=== PATIENT | male | born 1985 | race African-American/Black ===

== ENCOUNTER 2018-04-22 15:38 | Inpatient (IN) | payer OTHER ==
[2018-04-22] MEDS ORDERED: SODIUM CHLORIDE 1,000 ML IV STA (15:48)
[2018-04-22] MEDS ORDERED: NALOXONE HCL 0.4 MG/ML VIAL ONE (15:48)
[2018-04-22 16:09] LABS: BASO % 0.6 % (0-2.0); EOS % 1.6 % (0-4.5); HEMATOCRIT 44.4 % (35.4-49); HEMOGLOBIN 14.6 GM/dL (11.7-16.9); LYMPH % 36.1 % (8-40); MCH 30.1 pg (25.7-33.7); MCHC 32.9 g/dl (32.0-35.9); MEAN CELL VOLUME 91.4 fl (80-96); MEAN PLT VOLUME 9.5 fl (7.5-11.1); MONO % 3.3 % (3.8-10.2); NEUT % 58.4 % (42.8-82.8); PLATELET COUNT 202 K/MM3 (134-434); RBC 4.86 M/mm3 (4.00-5.60); RDW 14.4 % (11.9-15.9); WHITE BLOOD COUNT 10.8 K/mm3 (4.0-10.0)
[2018-04-22 16:24] LABS: INR 0.89 (0.83-1.09); PROTHROMBIN TIME (PATIENT) 10.5 SEC (9.7-13.0)
[2018-04-22 16:26] LABS: URINE APPEARANCE SLCLOUDY; URINE BILIRUBIN NEGATIVE (<2.0 mg/dL); URINE COLOR LTYELLOW; URINE GLUCOSE (UA) 3+ (NEGATIVE); URINE KETONE NEGATIVE (NEGATIVE); URINE LEUK ESTERASE NEGATIVE (NEGATIVE); URINE NITRITE NEGATIVE (NEGATIVE); URINE PROTEIN 2+ (NEGATIVE); URINE UROBILINOGEN NEGATIVE mg/dL (0.2-1.0)
--- NOTE | 2018-04-22 16:26 | PDOC ---
History of Present Illness - General Chief Complaint: Overdose Stated Complaint: Overdose Time Seen by Provider: 04/22/18 15:57 History Source: EMS Exam Limitations: Clinical Condition, Unresponsive - History of Present Illness Initial Comments: 04/22/18 16:15 The patient is a 33M with unknown PMH who presents to the ER via EMS. EMS provides the history as the patient is unresponsive. EMS states that they got a call for an unresponsive male. EMS states they found the gentleman slumped over with vomit in front of him. No other information was able to be obtained. They noted that there were no needles or paraphernalia around him. Past History - Past Medical History Allergies/Adverse Reactions: Allergies Allergy/AdvReac Type Severity Reaction Status Date / Time No Allergy Information Allergy Verified 04/22/18 15:47 Available Home Medications: Ambulatory Orders Benztropine Mesylate [Cogentin -] 1 mg PO DAILY #14 tablet 12/10/17 Divalproex [Depakote -] 500 mg PO HS #14 tablet.ec 12/10/17 Fluphenazine Decanoate [Prolixin Decanoate (Long-Acting Injection) -] 25 mg IJ ONCE #2 ml 12/10/17 COPD: No - Suicide/Smoking/Psychosocial Hx Smoking History: Never smoked Have you smoked in the past 12 months: No Information on smoking cessation initiated: No Hx Alcohol Use: No Drug/Substance Use Hx: No Review of Systems - Review of Systems Able to Perform ROS?: No (unresponsive) *Physical Exam - Vital Signs Last Vital Signs Temp Pulse Resp BP Pulse Ox 118 H 10 142/85 100 04/22/18 15:43 04/22/18 15:43 04/22/18 15:43 04/22/18 15:43 - Physical Exam Comments: 04/22/18 18:30 GENERAL: Well developed, well nourished. Unresponsive. No acute distress. HEENT: Normocephalic, atraumatic. Hearing grossly normal. Moist mucous membranes. PERRLA, EOMI. No conjunctival pallor. Sclera are non-icteric. Small bite jenni on anterior tongue. NECK: Supple. Full ROM. CARDIOVASCULAR: Regular rate and rhythm. No murmurs, rubs, or gallops. Distal pulses are 2+ and symmetric. PULMONARY: Spontaneous respirations without agonal breathing. Mild rales in all lung lechuga. ABDOMINAL: Soft. Non-tender. Non-distended. No rebound or guarding. MUSCULOSKELETAL: Not withdrawing from painful stimulus. R hand amputation. EXTREMITIES: No cyanosis. No clubbing. No edema. No calf tenderness or swelling. SKIN: Warm and dry. Normal capillary refill. No rashes. No jaundice. NEUROLOGICAL: Unresponsive. Not withdrawing from painful stimuli. No verbal responsiveness. Moderate Sedation - Procedure Monitoring Vital Signs: Procedure Monitoring Vital Signs Temperature Pulse Rate 118 H 04/22/18 15:43 Respiratory Rate 10 04/22/18 15:43 Blood Pressure 142/85 04/22/18 15:43 O2 Sat by Pulse Oximetry (%) 100 04/22/18 15:43 Heart Score/ECG Review #1 General ECG Interpretation: No acute ischemic changes Compared to previous ECG there are: Previous ECG unavail 04/22/18 18:36 Sinus tach vent rate 125 MI 122 QRS 104 QTc 498 No STD or ALYX Peaked T waves in V2 No priors ED Treatment Course - LABORATORY CBC & Chemistry Diagram: 04/22/18 15:43 04/22/18 15:43 - ADDITIONAL ORDERS Additional order review: 04/22/18 15:43 RBC 4.86 MCV 91.4 MCHC 32.9 RDW 14.4 MPV 9.5 Neutrophils % 58.4 Lymphocytes % 36.1 Monocytes % 3.3 L Eosinophils % 1.6 Basophils % 0.6 Medical Decision Making - Medical Decision Making 04/22/18 18:36 The patient is a 33M with unknown PMH who presents to the ER via EMS for unresponsiveness. Pt was given 1.4 of narcan and was found to have vomit in front of him. Although he was intermittently spontaneously breathing, he was not protecting his airway from secretions. Pt was intubated for airway protection. Bilateral breath sounds were appreciated with color change and condensation in the tube. CT head was negative. CXR negative on preliminary read but very limited by view. Pt currently being sedated with fentanyl and versed. Pt has copious secretions which are being suctioned and require frequent suction. CBC, CMP, utox negative. Au placed. NG tube was placed. IVF being given. Lactate of 3.0. XR noted a tube that required deeper placement. Upon attempt at replacement, tube was noted to be dislodged. Pt required additional rocuronium and was reintubated. Pending repeat CXR. Pt signed out to LAVER[facility] Ramirez for admission. ICU team, Dr. Barnett, aware of pt. *DC/Admit/Observation/Transfer Diagnosis at time of Disposition: Unresponsive - Discharge Dispostion Condition at time of disposition: Critical Decision to Admit order: Yes - Referrals - Patient Instructions - Post Discharge Activity
[2018-04-22] MEDS ORDERED: FENTANYL INJECTION 500 MCG in DEXTROSE 5%-WATER - 90 ML IVPB SCH (16:30)
[2018-04-22 16:35] LABS: ALBUMIN 4.1 g/dl (3.4-5.0); ALK PHOS 174 U/L (45-117); ANION GAP 12 MMOL/L (8-16); BILIRUBIN,TOTAL 0.3 mg/dL (0.2-1); BLOOD UREA NITROGEN 11 mg/dL (7-18); CALCIUM 7.9 mg/dL (8.5-10.1); CHLORIDE 102 mmol/L (98-107); CO2 25 mmol/L (21-32); CREATININE 1.8 mg/dL (0.55-1.3); POTASSIUM 4.3 mmol/L (3.5-5.1); SGOT/AST 324 U/L (15-37); SGPT/ALT 394 U/L (13-61); SODIUM 139 mmol/L (136-145); TOT PROT 7.6 g/dl (6.4-8.2)
[2018-04-22 16:35] LABS: URINE HYALINE CAST 4 /lpf; URINE MUCUS RARE
[2018-04-22 16:45] LABS: PLATELET ESTIMATE ADEQUATE
[2018-04-22 16:59] LABS: COCAINE, UR NEGATIVE ng/ml (CUTOFF=300); METHADONE, UR NEGATIVE ng/ml (CUTOFF=300); PHENCYCLIDINE,URINE NEGATIVE ng/ml (CUTOFF=25); URINE AMPHETAMINES NEGATIVE ng/ml (CUTOFF=500); URINE BARBITURATES NEGATIVE ng/ml (CUTOFF=200); URINE BENZODIAZEPINES NEGATIVE ng/ml (CUTOFF=200)
[2018-04-22 17:00] LABS: OPIATES, URI NEGATIVE ng/ml (CUTOFF=300)
[2018-04-22 17:08] LABS: GLUCOSE,RANDOM 407 mg/dL (74-106)
[2018-04-22] MEDS ORDERED: SODIUM CHLORIDE 0.9% 1000 ML INFUS.BAG IV ONE (17:10)
[2018-04-22 17:15] LABS: ARTERIAL BLD GAS O2 SATURATION 98.1 % (90-98.9); ARTERIAL BLOOD GAS BASE EXCESS -2.2 meq/l (-2-2); ARTERIAL BLOOD GAS pH 7.24 (7.35-7.45); CARBOXYHEMOGLOBIN 3.7 gm% (0.5-2.0)
[2018-04-22 17:19] LABS: ARTERIAL BLOOD GAS PCO2 62.1 mmHg (35-45)
[2018-04-22] MEDS ORDERED: MIDAZOLAM HCL 2 MG/2 ML SINGLE DOSE VIAL ONE (17:23)
[2018-04-22] MEDS ORDERED: MIDAZOLAM HCL 5 MG/1 ML Single Dose Vial IVPUSH ONE (17:26)
[2018-04-22] MEDS ORDERED: MIDAZOLAM 100 MG in SODIUM CHLORIDE 100 ML IVPB SCH (17:30)
[2018-04-22] MEDS ORDERED: MIDAZOLAM 100 MG/100 ML MG IVPB ONE (17:33)
[2018-04-22] MEDS ORDERED: LACTATED RINGERS SOLUTION 1000 ML INFUS.BAG IV ONE (17:41)
--- NOTE | 2018-04-22 17:44 | HP ---
CHIEF COMPLAINT: found unresponsive PCP: unknown HISTORY OF PRESENT ILLNESS: Patient is a 33 year old male with no known past medical history. His right hand with deformity and his left hand which what appears to be clubbing of the finger tips. He comes to the ER today via EMS as he was found unresponsive and surrounded by vomit. No other history can be obtained at this time. Enroute to hospital, EMS gave 1.2 mg of narcan total with no response from patient. He has a contact phone number on file from a Sherlyn Delgado (mother). I called the phone number twice. The first time, it rang with no knot picker cloth, second time, an unknown male picked up the phone and informed me that no Sherlyn Delgado nor Patrice Teixeira lived at the residence. I called the corrections department as it was listed that this patient has been recently incarcerated. Phone no. , and directed to call [phone] with no options to get through to corrections. May need to call [place] [employer] if patient remains unresponsive. On exam, patient is intubated, sedated with an NGT to left nare. No obvious signs of trauma or track abreu noted on his arm. some abrasions on his lower extremities. ER course was notable for: (1) intubated (2) negative utox (3) negative head ct (4) glucose 407, lactic acid 3.2, creat 1.8, elevated ast/alt Recent Travel: unknown PAST MEDICAL HISTORY: unknown PAST SURGICAL HISTORY: unknown Social History: Smoking: unknown Alcohol: unknown Drugs: unknown Family History: Allergies No Allergy Information Available Allergy (Verified 04/22/18 15:47) HOME MEDICATIONS: Home Medications Medication Instructions Recorded Benztropine Mesylate [Cogentin -] 1 mg PO DAILY #14 tablet 12/10/17 Divalproex [Depakote -] 500 mg PO HS #14 tablet.ec 12/10/17 Fluphenazine Decanoate [Prolixin 25 mg IJ ONCE #2 ml 12/10/17 Decanoate (Long-Acting Injection) -] REVIEW OF SYSTEMS PHYSICAL EXAMINATION Vital Signs - 24 hr 04/22/18 04/22/18 04/22/18 15:40 15:43 16:00 Temperature 94.6 F L Pulse Rate 118 H Pulse Rate [ Apical] Respiratory 14 10 14 Rate Blood Pressure 142/85 Blood Pressure [Left Arm] O2 Sat by Pulse 100 Oximetry (%) 04/22/18 16:50 Temperature Pulse Rate Pulse Rate [ 109 H Apical] Respiratory 18 Rate Blood Pressure Blood Pressure 154/105 H [Left Arm] O2 Sat by Pulse 100 Oximetry (%) GENERAL: sedated and intubated HEAD: Normal with no signs of trauma. EYES: large pupils EARS, NOSE, THROAT: Ears normal, nares patent, oropharynx clear without exudates. Moist mucous membranes. NECK: no masses. LUNGS: scattred congestion anteriorly HEART: Regular rate and rhythm ABDOMEN: Soft,distended abdomen, normoactive bowel sounds, UPPER EXTREMITIES: right hand deformity, no fingers of right hand. left hand with clubbing, fungal finger nails LOWER EXTREMITIES: abrasions on left anterior gomes NEUROLOGICAL: cant assess PSYCHIATRIC:cant assess Laboratory Results - last 24 hr 04/22/18 04/22/18 04/22/18 15:43 15:43 15:43 WBC 10.8 H RBC 4.86 Hgb 14.6 Hct 44.4 MCV 91.4 MCH 30.1 MCHC 32.9 RDW 14.4 Plt Count 202 MPV 9.5 Absolute Neuts (auto) 6.3 Neutrophils % 58.4 Neutrophils % (Manual) 38.0 L Band Neutrophils % 3.0 Lymphocytes % 36.1 Lymphocytes % (Manual) 40.0 Monocytes % 3.3 L Monocytes % (Manual) 2 L Eosinophils % 1.6 Eosinophils % (Manual) 2.0 Basophils % 0.6 Basophils % (Manual) 0.0 Myelocytes % (Man) 9 H Nucleated RBC % 2 H Metamyelocytes 1 Platelet Estimate Adequate PT with INR 10.50 INR 0.89 Anticoagulation Therapy Puncture Site Patient Temperature ABG pH ABG pCO2 at Pt Temp ABG pO2 at Pt Temp ABG HCO3 ABG O2 Sat (Measured) ABG O2 Content ABG Base Excess Adrián Test Carboxyhemoglobin Methemoglobin O2 Delivery Device Oxygen Flow Rate Vent Mode Vent Rate Mechanical Rate PEEP Pressure Support Vent Sodium 139 Potassium 4.3 Chloride 102 Carbon Dioxide 25 Anion Gap 12 BUN 11 Creatinine 1.8 H Creat Clearance w eGFR 44.23 Random Glucose 407 H* Lactic Acid Calcium 7.9 L Total Bilirubin 0.3 AST 324 H ALT 394 H Alkaline Phosphatase 174 H Troponin I < 0.02 Total Protein 7.6 Albumin 4.1 Urine Color Urine Appearance Urine pH Ur Specific [place] Urine Protein Urine Glucose (UA) Urine Ketones Urine Blood Urine Nitrite Urine Bilirubin Urine Urobilinogen Ur Leukocyte Esterase Urine WBC (Auto) Urine RBC (Auto) Hyaline Casts Urine Mucus Salicylates Opiates Screen Methadone Screen Acetaminophen Barbiturate Screen Phencyclidine Screen Ur Amphetamines Screen MDMA (Ecstasy) Screen Benzodiazepines Screen Cocaine Screen U Marijuana (THC) Screen Alcohol, Quantitative < 3.0 04/22/18 04/22/18 04/22/18 15:43 15:58 15:58 WBC RBC Hgb Hct MCV MCH MCHC RDW Plt Count MPV Absolute Neuts (auto) Neutrophils % Neutrophils % (Manual) Band Neutrophils % Lymphocytes % Lymphocytes % (Manual) Monocytes % Monocytes % (Manual) Eosinophils % Eosinophils % (Manual) Basophils % Basophils % (Manual) Myelocytes % (Man) Nucleated RBC % Metamyelocytes Platelet Estimate PT with INR INR Anticoagulation Therapy Puncture Site Patient Temperature ABG pH ABG pCO2 at Pt Temp ABG pO2 at Pt Temp ABG HCO3 ABG O2 Sat (Measured) ABG O2 Content ABG Base Excess Adrián Test Carboxyhemoglobin Methemoglobin O2 Delivery Device Oxygen Flow Rate Vent Mode Vent Rate Mechanical Rate PEEP Pressure Support Vent Sodium Potassium Chloride Carbon Dioxide Anion Gap BUN Creatinine Creat Clearance w eGFR Random Glucose Lactic Acid Calcium Total Bilirubin AST ALT Alkaline Phosphatase Troponin I Total Protein Albumin Urine Color Ltyellow Urine Appearance Slcloudy Urine pH 6.0 Ur Specific [place] 1.016 Urine Protein 2+ H Urine Glucose (UA) 3+ H Urine Ketones Negative Urine Blood Negative Urine Nitrite Negative Urine Bilirubin Negative Urine Urobilinogen Negative Ur Leukocyte Esterase Negative Urine WBC (Auto) 6 Urine RBC (Auto) 2 Hyaline Casts 4 Urine Mucus Rare Salicylates < 1.7 L Opiates Screen Negative Methadone Screen Negative Acetaminophen < 2.0 L Barbiturate Screen Negative Phencyclidine Screen Negative Ur Amphetamines Screen Negative MDMA (Ecstasy) Screen Negative Benzodiazepines Screen Negative Cocaine Screen Negative U Marijuana (THC) Screen Negative Alcohol, Quantitative 04/22/18 04/22/18 04/22/18 15:58 16:28 17:04 WBC RBC Hgb Hct MCV MCH MCHC RDW Plt Count MPV Absolute Neuts (auto) Neutrophils % Neutrophils % (Manual) Band Neutrophils % Lymphocytes % Lymphocytes % (Manual) Monocytes % Monocytes % (Manual) Eosinophils % Eosinophils % (Manual) Basophils % Basophils % (Manual) Myelocytes % (Man) Nucleated RBC % Metamyelocytes Platelet Estimate PT with INR INR Anticoagulation Therapy Cancelled No Result Required. Puncture Site Cancelled Patient Temperature Cancelled ABG pH Cancelled 7.24 L* ABG pCO2 at Pt Temp Cancelled 62.1 H* ABG pO2 at Pt Temp Cancelled 122.0 H ABG HCO3 Cancelled 25.9 ABG O2 Sat (Measured) Cancelled 98.1 ABG O2 Content Cancelled 17.8 ABG Base Excess Cancelled -2.2 L Adrián Test Cancelled Carboxyhemoglobin Cancelled 3.7 H Methemoglobin Cancelled 0.6 O2 Delivery Device Cancelled No Result Required. Oxygen Flow Rate Cancelled No Result Required. Vent Mode Cancelled No Result Required. Vent Rate Cancelled No Result Required. Mechanical Rate Cancelled No Result Required. PEEP Cancelled Pressure Support Vent Cancelled No Result Required. Sodium Potassium Chloride Carbon Dioxide Anion Gap BUN Creatinine Creat Clearance w eGFR Random Glucose Lactic Acid 3.2 H* Calcium Total Bilirubin AST ALT Alkaline Phosphatase Troponin I Total Protein Albumin Urine Color Urine Appearance Urine pH Ur Specific [place] Urine Protein Urine Glucose (UA) Urine Ketones Urine Blood Urine Nitrite Urine Bilirubin Urine Urobilinogen Ur Leukocyte Esterase Urine WBC (Auto) Urine RBC (Auto) Hyaline Casts Urine Mucus Salicylates Opiates Screen Methadone Screen Acetaminophen Barbiturate Screen Phencyclidine Screen Ur Amphetamines Screen MDMA (Ecstasy) Screen Benzodiazepines Screen Cocaine Screen U Marijuana (THC) Screen Alcohol, Quantitative ASSESSMENT/PLAN: Patient is a 33 year old male with no known past medical history. His right hand with deformity and his left hand which what appears to be clubbing of the finger tips. He comes to the ER today via EMS as he was found unresponsive and surrounded by vomit. No other history can be obtained at this time. He has a contact phone number on file from a Sherlyn Delgado (mother). I called the phone number twice. The first time, it rang with no knot picker cloth, second time, an unknown male picked up the phone and informed me that no Sherlyn Delgado nor Patrice Teixeira lived at the residence. I called the corrrections department as it was listed that this patient has been recently incarcerated. Phone no. , and directed to call [phone] with no options to get through to corrections. May need to call [place] [employer] if patient remains unresponsive. On exam, patient is intubated, sedated with an NGT to left nare. No obvious signs of trauma or track abreu noted on his arm. some abrasions on his lower extremities. Neuro: Acute toxic metabolic encephalopahty of unknown cause Drug overdose vs. Postilptal from seizure vs. other unknown cause Monitor in ICU labs vitals lactic acidosis elevated creatinine glucose 407 Elevated ast/ast Monitor and repeat get ammonia level now plan bgms q 4 repeat lactic acid monitor vitals signs troponins Visit type - Emergency Visit Emergency Visit: Yes ED Registration Date: 04/22/18 Care time: The patient presented to the Emergency Department on the above date and was hospitalized for further evaluation of their emergent condition. - New Patient This patient is new to me today: Yes Date on this admission: 04/22/18 - Critical Care Critical Care patient: Yes Total Critical Care Time (in minutes): 45 Critical Care Statement: The care of this patient involved high complexity decision making to prevent further life threatening deterioration of the patient 's condition and/or to evaluate & treat vital organ system(s) failure or risk of failure.
--- NOTE | 2018-04-22 18:08 | PDOC ---
Attending Attestation - Resident Resident Name: Reece Garrison - ED Attending Attestation I have performed the following: I have examined & evaluated the patient, The case was reviewed & discussed with the resident, I agree w/resident's findings & plan, Exceptions are as noted - HPI HPI: 04/22/18 18:02 The patient is a 33 year old male, with unknown medical history, who was BIBA to the emergency room after being found unresponsive at [place] bus stop by a bystander. EMS reports they found the patient slouched over on a bus stop bench , unresponsive, with a pool of red/orange vomit in front of the patient. EMS notes patient was sinus tachy, 16 resp/min, and O2 in low 80s on first evaluation. They notes that with administered O2 and assisted ventilations, levels reached 100. EMS states pupils were not constricted but were reacting "weirdly" to light stimulus. EMS gave 1.2 mg of narcan total with no response from patient. Patients ID states he was just released from longterm 2 days ago. Allergies: unknown - Physicial Exam PE: 04/22/18 18:08 Gen: unresponsive to pain, taking spontaneous breaths, supported by BVM Head: no evidence of trauma CV: tachycardic but regular, no MRG Pulm: +frothy secretions in OP, +course BS b/l Abd: mild distention : rectal temp 94.6 BACK: no evidence of trauma, stepoffs, deformities Ext: R distal ext cold, +R hand amputation, no evidence of trauma Neuro: unresponsive, does not withdraw to pain, pupils b/l reactive to light, 4- >2. Normal tone. No posturing. Decreased reflexes throughout. Skin: No rashes - Critical Care Time Total Critical Care Time: 120 Critical Care Statement: The care of this patient involved high complexity decision making to prevent further life threatening deterioration of the patient 's condition and/or to evaluate & treat vital organ system(s) failure or risk of failure. - Medical Decision Making 04/22/18 18:13 33yo M with unknown PMH, recently incarcerated and released from [facility], presents to the ED unresponsive, slumped on bench, requiring assisted ventilations FS 311 in field Pt not withdrawing or localizing to pain, frothy secretions noted in the OP on presentation USing ketamine and rocc, intubated for airway protection, taken to [facility] which was neg Pt noted to have tongue biting upon intubation, possible seizure/post ictal? Broad work up performed looking for etiology, no evidence of sepsis, ischemia, metabolic disarray other than non AG hyperglycemia EKG non ischemic, no abnormal intervals Impression: status epilepticus vs drug OD Although Utox neg, possible K2 or GHB? Pt has been sedated with fentanyl and versed. ABG reveals resp acidosis, rate increased to 20 on vent. Repeat ABG pending Case discussed with ICU resident Dr. Navarro, pt accepted to ICU. Case discussed with [facility] Tyrell who has evaluated pt, accepts pt for admission under Dr. Lucas
[2018-04-22] MEDS ORDERED: ROCURONIUM BROMIDE 50 MG/5 ML VIAL IV ONE (18:46)
[2018-04-22] MEDS ORDERED: levETIRAcetam 500 MG/5 ML INJECTION VIAL IVPB ONE ×2 (18:56→19:13)
--- NOTE | 2018-04-22 19:10 | CONSULT ---
Consultation: REQUESTING PROVIDER: Dr. Hill CONSULT REQUEST: We have been asked to medically evaluate this patient for admission to ICU. HISTORY OF PRESENT ILLNESS: 33 y/o M with unknown PMHx was BIBEMS after being found unresponsive. Patients ID reveals he was released from shelter 2 days ago. On my interview, patient was intubated and sedated, thus most of the hx is provided by EMR. Patient was found to be unresponsive, slumped over with a pool of Red/Coryell vomit infront of him. Patient was tachycardic with O2 Sats in the 80s upon EMS first evaluation. EMS gave 1.2 mg of Narcan total with no response. Initial Finger stick BG was 311. Patient was assisted in ventialtions and his O2 sats reached 100%. Of note, EMS reports no paraphernalia or needles were found around the patient. In the ED, patient was noted to have tongue biting during intubation. Since arrival in the ED, patient has had multiple Coryell/Red vomits with large chunks of food. REVIEW OF SYSTEMS: Unable to obtain PHYSICAL EXAMINATION Vital Signs - 24 hr 04/22/18 04/22/18 04/22/18 15:40 15:43 16:00 Temperature 94.6 F L Pulse Rate 118 H Pulse Rate [ Apical] Respiratory 14 10 14 Rate Blood Pressure 142/85 Blood Pressure [Left Arm] O2 Sat by Pulse 100 Oximetry (%) 04/22/18 04/22/18 04/22/18 16:50 17:43 18:11 Temperature Pulse Rate Pulse Rate [ 109 H 118 H 108 H Apical] Respiratory 18 18 Rate Blood Pressure Blood Pressure 154/105 H 150/108 H 131/84 [Left Arm] O2 Sat by Pulse 100 99 100 Oximetry (%) 04/22/18 18:17 Temperature Pulse Rate Pulse Rate [ Apical] Respiratory Rate Blood Pressure Blood Pressure [Left Arm] O2 Sat by Pulse 100 Oximetry (%) GENERAL: Sedated HEAD: NCAT EYES: Pinpoint and fixed pupils EARS, NOSE, THROAT: Moist mucous membranes. NG tube placed in Left nare. NECK: Supple LUNGS: Intubated, Mechanical breath sounds, No wheezes, no crackles HEART: Regular rate and rhythm, normal S1 and S2 without murmur ABDOMEN: Soft, Distended, + bowel sounds EXTREMITIES: Right digit amputations. No peripheral edema. NEUROLOGICAL: Sedated SKIN: Warm, dry, No track abreu noted over extremities. Laboratory Results - last 24 hr 04/22/18 04/22/18 04/22/18 15:43 15:43 15:43 WBC 10.8 H RBC 4.86 Hgb 14.6 Hct 44.4 MCV 91.4 MCH 30.1 MCHC 32.9 RDW 14.4 Plt Count 202 MPV 9.5 Absolute Neuts (auto) 6.3 Neutrophils % 58.4 Neutrophils % (Manual) 38.0 L Band Neutrophils % 3.0 Lymphocytes % 36.1 Lymphocytes % (Manual) 40.0 Monocytes % 3.3 L Monocytes % (Manual) 2 L Eosinophils % 1.6 Eosinophils % (Manual) 2.0 Basophils % 0.6 Basophils % (Manual) 0.0 Myelocytes % (Man) 9 H Nucleated RBC % 2 H Metamyelocytes 1 Platelet Estimate Adequate PT with INR 10.50 INR 0.89 Anticoagulation Therapy Puncture Site Patient Temperature ABG pH ABG pCO2 at Pt Temp ABG pO2 at Pt Temp ABG HCO3 ABG O2 Sat (Measured) ABG O2 Content ABG Base Excess Adrián Test Carboxyhemoglobin Methemoglobin O2 Delivery Device Oxygen Flow Rate Vent Mode Vent Rate Mechanical Rate PEEP Pressure Support Vent Sodium 139 Potassium 4.3 Chloride 102 Carbon Dioxide 25 Anion Gap 12 BUN 11 Creatinine 1.8 H Creat Clearance w eGFR 44.23 Random Glucose 407 H* Lactic Acid Calcium 7.9 L Total Bilirubin 0.3 AST 324 H ALT 394 H Alkaline Phosphatase 174 H Troponin I < 0.02 Total Protein 7.6 Albumin 4.1 Urine Color Urine Appearance Urine pH Ur Specific Ford Urine Protein Urine Glucose (UA) Urine Ketones Urine Blood Urine Nitrite Urine Bilirubin Urine Urobilinogen Ur Leukocyte Esterase Urine WBC (Auto) Urine RBC (Auto) Hyaline Casts Urine Mucus Salicylates Opiates Screen Methadone Screen Acetaminophen Barbiturate Screen Phencyclidine Screen Ur Amphetamines Screen MDMA (Ecstasy) Screen Benzodiazepines Screen Cocaine Screen U Marijuana (THC) Screen Alcohol, Quantitative < 3.0 04/22/18 04/22/18 04/22/18 15:43 15:58 15:58 WBC RBC Hgb Hct MCV MCH MCHC RDW Plt Count MPV Absolute Neuts (auto) Neutrophils % Neutrophils % (Manual) Band Neutrophils % Lymphocytes % Lymphocytes % (Manual) Monocytes % Monocytes % (Manual) Eosinophils % Eosinophils % (Manual) Basophils % Basophils % (Manual) Myelocytes % (Man) Nucleated RBC % Metamyelocytes Platelet Estimate PT with INR INR Anticoagulation Therapy Puncture Site Patient Temperature ABG pH ABG pCO2 at Pt Temp ABG pO2 at Pt Temp ABG HCO3 ABG O2 Sat (Measured) ABG O2 Content ABG Base Excess Adrián Test Carboxyhemoglobin Methemoglobin O2 Delivery Device Oxygen Flow Rate Vent Mode Vent Rate Mechanical Rate PEEP Pressure Support Vent Sodium Potassium Chloride Carbon Dioxide Anion Gap BUN Creatinine Creat Clearance w eGFR Random Glucose Lactic Acid Calcium Total Bilirubin AST ALT Alkaline Phosphatase Troponin I Total Protein Albumin Urine Color Ltyellow Urine Appearance Slcloudy Urine pH 6.0 Ur Specific Ford 1.016 Urine Protein 2+ H Urine Glucose (UA) 3+ H Urine Ketones Negative Urine Blood Negative Urine Nitrite Negative Urine Bilirubin Negative Urine Urobilinogen Negative Ur Leukocyte Esterase Negative Urine WBC (Auto) 6 Urine RBC (Auto) 2 Hyaline Casts 4 Urine Mucus Rare Salicylates < 1.7 L Opiates Screen Negative Methadone Screen Negative Acetaminophen < 2.0 L Barbiturate Screen Negative Phencyclidine Screen Negative Ur Amphetamines Screen Negative MDMA (Ecstasy) Screen Negative Benzodiazepines Screen Negative Cocaine Screen Negative U Marijuana (THC) Screen Negative Alcohol, Quantitative 04/22/18 04/22/18 04/22/18 15:58 16:28 17:04 WBC RBC Hgb Hct MCV MCH MCHC RDW Plt Count MPV Absolute Neuts (auto) Neutrophils % Neutrophils % (Manual) Band Neutrophils % Lymphocytes % Lymphocytes % (Manual) Monocytes % Monocytes % (Manual) Eosinophils % Eosinophils % (Manual) Basophils % Basophils % (Manual) Myelocytes % (Man) Nucleated RBC % Metamyelocytes Platelet Estimate PT with INR INR Anticoagulation Therapy Cancelled No Result Required. Puncture Site Cancelled Patient Temperature Cancelled ABG pH Cancelled 7.24 L* ABG pCO2 at Pt Temp Cancelled 62.1 H* ABG pO2 at Pt Temp Cancelled 122.0 H ABG HCO3 Cancelled 25.9 ABG O2 Sat (Measured) Cancelled 98.1 ABG O2 Content Cancelled 17.8 ABG Base Excess Cancelled -2.2 L Adrián Test Cancelled Carboxyhemoglobin Cancelled 3.7 H Methemoglobin Cancelled 0.6 O2 Delivery Device Cancelled No Result Required. Oxygen Flow Rate Cancelled No Result Required. Vent Mode Cancelled No Result Required. Vent Rate Cancelled No Result Required. Mechanical Rate Cancelled No Result Required. PEEP Cancelled Pressure Support Vent Cancelled No Result Required. Sodium Potassium Chloride Carbon Dioxide Anion Gap BUN Creatinine Creat Clearance w eGFR Random Glucose Lactic Acid 3.2 H* Calcium Total Bilirubin AST ALT Alkaline Phosphatase Troponin I Total Protein Albumin Urine Color Urine Appearance Urine pH Ur Specific Ford Urine Protein Urine Glucose (UA) Urine Ketones Urine Blood Urine Nitrite Urine Bilirubin Urine Urobilinogen Ur Leukocyte Esterase Urine WBC (Auto) Urine RBC (Auto) Hyaline Casts Urine Mucus Salicylates Opiates Screen Methadone Screen Acetaminophen Barbiturate Screen Phencyclidine Screen Ur Amphetamines Screen MDMA (Ecstasy) Screen Benzodiazepines Screen Cocaine Screen U Marijuana (THC) Screen Alcohol, Quantitative Active Medications Chlorhexidine Gluconate (Hibiclens For Decolonization -) 1 applic TP HS LIBERTY Fentanyl 500 mcg/ Dextrose 100 mls @ 10 mls/hr IVPB TITR LIBERTY Last Admin: 04/22/18 16:51 Dose: 50 mcg/hr, 10 mls/hr Midazolam HCl 100 mg/ Sodium (Chloride) 100 mls @ 1 mls/hr IVPB TITR LIBERTY; Protocol Last Admin: 04/22/18 17:40 Dose: 2 mg/hr, 2 mls/hr Sodium Chloride (Normal Saline -) 1,000 mls @ 125 mls/hr IV ASDIR LIB[facility] Mupirocin (Bactroban Ointment (For Decolonization) -) 1 applic NS BID LIBERTY Stop: 04/27/18 21:59 ASSESSMENT/PLAN: 33 y/o M with unknown PMHx, who recently incarcerate, was BIBEMS after being found unresponsive, and will be monitored in ICU s/p intubation. #Neuro Found to be unresponsive in the field, now sedated -Unclear etiology; Still consider post ictal state from seizure VS Drug overdose -UTox negative -CT Head: Negative exam. No discrete noncontrast CT pathology is identified -Aspiration, Seizure precautions -Carboxyhemoglobin, Methemoglobin pending -Continue Midazolam drip -Dr. Flores consulted #Cardio -Trop <0.02 -Tachycardia and HTN likely related to underlying sepsis process, Continue to monitor #Pulm S/P Intubated -ABG shows respiratory acidosis -CXR: The lungs are clear. An acute process is not seen. A later film obtained at 1825 hours shows the NG tube tip in the stomach and an endotracheal tube tip well above the horacio -Vent Settings: 18/430/40%/+5 #GI Transaminitis -Likely due to Sepsis -FOBT negative -Ammonia level, Hepatitis Panel, RUQ US pending #Renal BALAJI -Cr 1.8 likely due to dehydration -Continue NS @ 125 mls/hr -Continue to monitor Urine output, I&O's -Will consider further imaging if Cr continues rising #Endo Elevated BG -A1c pending -ISS BGMs ACHS #ID SIRS+ Lactic acidosis -Temp 94.6, HR 118, Leukocytosis -LA 3.2 -UA negative for UTI -Blood and Urine Cx pending -Continue Rashawn Kamaljiter -Vital signs Q2H -S/P 2L NS in ED; Continue NS @ 125 mls/hr -Continue Vanco 1g daily, Zosyn 4.5g Q8H -Dr. Crocker consulted #FEN -NS @ 125 mls/hr -Replete Lytes as needed -NPO #PPx -DVT: SCDs Code Status: Full Code Dispo: We will continue to follow the patient. Thank you for this consultative opportunity. Visit type - Emergency Visit Emergency Visit: Yes ED Registration Date: 04/22/18 Care time: The patient presented to the Emergency Department on the above date and was hospitalized for further evaluation of their emergent condition. - New Patient This patient is new to me today: Yes Date on this admission: 04/23/18 - Critical Care Critical Care patient: Yes Total Critical Care Time (in minutes): 36 Critical Care Statement: The care of this patient involved high complexity decision making to prevent further life threatening deterioration of the patient 's condition and/or to evaluate & treat vital organ system(s) failure or risk of failure.
[2018-04-22] MEDS ORDERED: PIPERACILLIN/TAZOB 4.5 GM 4.5 GM in DEXTROSE 5%-WATER - 100 ML IVPB ONE (19:21)
[2018-04-22] MEDS ORDERED: VANCOMYCIN 1,000 MG in DEXTROSE 5%-WATER - 250 ML IVPB ONE (19:22)
[2018-04-22] MEDS ORDERED: PIPERACILLIN/TAZOB 4.5 GM 4.5 GM/100 ML BAG IVPB ONE (19:28)
[2018-04-22] MEDS ORDERED: VANCOMYCIN 1 GRAM (PRE-DOCKED) 1,000 MG/250 ML BAG IVPB ONE (19:29)
[2018-04-22 20:11] LABS: ARTERIAL BLD GAS O2 SATURATION 80.5 % (90-98.9); ARTERIAL BLOOD GAS BASE EXCESS -1.8 meq/l (-2-2); ARTERIAL BLOOD GAS pH 7.25 (7.35-7.45)
[2018-04-22 20:22] LABS: ALLENS TEST POSITIVE
[2018-04-22 20:26] LABS: ARTERIAL BLOOD GAS PO2 49.2 mmHg (80-100)
[2018-04-22] MEDS: SODIUM CHLORIDE 1,000 ML IV SCH (20:45)
[2018-04-22] MEDS ORDERED: PROPOFOL 1,000,000 MCG/100 ML VIAL IVPB SCH (22:00)
[2018-04-22] MEDS ORDERED: DOXYCYCLINE INJECTION 100 MG in DEXTROSE 5%-WATER 100 ML IVPB ONE (22:45)
[2018-04-22] MEDS: CHLORHEXIDINE GLUCONATE 4% CLEANSER FOR DECOLONIZATION TP SCH (23:07)
[2018-04-22 23:41] VITALS: BMI 24.8
[2018-04-22] MEDS: MUPIROCIN 2% TOPICAL OINTMENT FOR DECOLONIZATION NS SCH (23:42)
[2018-04-22] MEDS ORDERED: ACETAMINOPHEN 1000 MG/100 ML VIAL (NON FORMULARY) IVPB PRN (23:47)
[2018-04-22] MEDS: INSULIN SLIDING SCALE (NOVOLOG) 1 VIAL SQ SCH (23:55)
[2018-04-23] MEDS: INSULIN SLIDING SCALE (NOVOLOG) 1 VIAL SQ SCH ×2 (06:12→12:50)
[2018-04-23 06:58] LABS: ALBUMIN 3.3 g/dl (3.4-5.0); ALK PHOS 91 U/L (45-117); ANION GAP 6 MMOL/L (8-16); BASO % 0.3 % (0-2.0); BILIRUBIN,TOTAL 0.6 mg/dL (0.2-1); BLOOD UREA NITROGEN 8 mg/dL (7-18); CALCIUM 8.1 mg/dL (8.5-10.1); CHLORIDE 108 mmol/L (98-107); CO2 28 mmol/L (21-32); CREATININE 1.2 mg/dL (0.55-1.3); GLUCOSE,RANDOM 88 mg/dL (74-106); HEMOGLOBIN 12.7 GM/dL (11.7-16.9); LYMPH % 19.8 % (8-40); MAGNESIUM 1.5 mg/dL (1.8-2.4); MCH 29.3 pg (25.7-33.7); MCHC 33.5 g/dl (32.0-35.9); MEAN CELL VOLUME 87.5 fl (80-96); MEAN PLT VOLUME 8.8 fl (7.5-11.1); MONO % 6.3 % (3.8-10.2); NEUT % 73.6 % (42.8-82.8); PLATELET COUNT 177 K/MM3 (134-434); POTASSIUM 3.7 mmol/L (3.5-5.1); RBC 4.34 M/mm3 (4.00-5.60); RDW 13.7 % (11.9-15.9); SGOT/AST 116 U/L (15-37); SGPT/ALT 295 U/L (13-61); SODIUM 142 mmol/L (136-145); TOT PROT 6.4 g/dl (6.4-8.2); WHITE BLOOD COUNT 11.2 K/mm3 (4.0-10.0)
[2018-04-23 08:00] LABS: ARTERIAL BLD GAS O2 SATURATION 99.8 % (90-98.9); ARTERIAL BLOOD GAS BASE EXCESS 4.1 meq/l (-2-2); ARTERIAL BLOOD GAS PCO2 35.6 mmHg (35-45); ARTERIAL BLOOD GAS pH 7.49 (7.35-7.45)
[2018-04-23] MEDS ORDERED: MAGNESIUM SULF 50% (8.12 MEQ/2 ML-1 GM VIAL) IVPB ONE (08:03)
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
[2018-04-23 08:12] LABS: ALLENS TEST POSITIVE
[2018-04-23] MEDS ORDERED: MIDAZOLAM HCL 2 MG/2 ML SINGLE DOSE VIAL IVPUSH ONE (09:29)
[2018-04-23] MEDS ORDERED: levETIRAcetam 500 MG/5 ML INJECTION VIAL IVPB SCH (10:00)
--- NOTE | 2018-04-23 10:25 | PN ---
Progress Note (short form) - Note Progress Note: PULM/CCM Pt seen and examined in ICU 24HR: -transaminitis improving, ABD US negative -tremulous but following commands this morning off continuous sedation -good volumes on PS 10---> extubated successfully -admits to smoking K2 (synthetic MJ) yesterday, denies other illicits Vital Signs Temp 99 F 04/23/18 08:00 Pulse 74 04/23/18 10:00 Resp 14 04/23/18 10:00 BP 142/91 04/23/18 10:00 Pulse Ox 100 04/23/18 08:56 Intake & Output 04/22/18 04/22/18 04/23/18 11:59 23:59 11:59 Output Total 200 Balance -200 Weight 69.808 kg 70.035 kg Output: Urine 200 Au 200 Other: Voiding Method Indwelling Catheter Height 5 ft 6 in Body Mass Index (BMI) 24.8 Weight Measurement Method Built in [facility] CBCD WBC 11.2 K/mm3 (4.0-10.0) H 04/23/18 05:30 RBC 4.34 M/mm3 (4.00-5.60) 04/23/18 05:30 Hgb 12.7 GM/dL (11.7-16.9) 04/23/18 05:30 Hct 38.0 % (35.4-49) 04/23/18 05:30 MCV 87.5 fl (80-96) 04/23/18 05:30 MCHC 33.5 g/dl (32.0-35.9) 04/23/18 05:30 RDW 13.7 % (11.9-15.9) 04/23/18 05:30 Plt Count 177 K/MM3 (134-434) 04/23/18 05:30 MPV 8.8 fl (7.5-11.1) 04/23/18 05:30 CMP Sodium 142 mmol/L (136-145) 04/23/18 05:30 Potassium 3.7 mmol/L (3.5-5.1) 04/23/18 05:30 Chloride 108 mmol/L (98-107) H 04/23/18 05:30 Carbon Dioxide 28 mmol/L (21-32) 04/23/18 05:30 Anion Gap 6 MMOL/L (8-16) L 04/23/18 05:30 BUN 8 mg/dL (7-18) 04/23/18 05:30 Creatinine 1.2 mg/dL (0.55-1.3) 04/23/18 05:30 Creat Clearance w eGFR > 60 (>60) 04/23/18 05:30 Calcium 8.1 mg/dL (8.5-10.1) L 04/23/18 05:30 Total Bilirubin 0.6 mg/dL (0.2-1) 04/23/18 05:30 AST 116 U/L (15-37) H 04/23/18 05:30 ALT 295 U/L (13-61) H 04/23/18 05:30 Alkaline Phosphatase 91 U/L (45-117) 04/23/18 05:30 Total Protein 6.4 g/dl (6.4-8.2) 04/23/18 05:30 Albumin 3.3 g/dl (3.4-5.0) L 04/23/18 05:30 Active Medications Acetaminophen (Ofirmev Injection -) 1,000 mg IVPB Q6H PRN PRN Reason: FEVER Chlorhexidine Gluconate (Hibiclens For Decolonization -) 1 applic TP HS [facility] Last Admin: 04/22/18 23:07 Dose: 1 applic Fentanyl 500 mcg/ Dextrose 100 mls @ 10 mls/hr IVPB TITR [facility] Last Titration: 04/22/18 17:40 Dose: 0 mcg/hr, 0 mls/hr Sodium Chloride (Normal Saline -) 1,000 mls @ 125 mls/hr IV ASDIR [facility] Last Admin: 04/22/18 20:45 Dose: 125 mls/hr Insulin Aspart (Novolog Vial Sliding Scale -) 1 vial SQ ACHS [facility]; Protocol Last Admin: 04/23/18 06:12 Dose: Not Given Levetiracetam (Keppra Injection -) 500 mg IVPB BID [facility] Last Admin: 04/23/18 09:41 Dose: 500 mg Mupirocin (Bactroban Ointment (For Decolonization) -) 1 applic NS BID [facility] Stop: 04/27/18 21:59 Last Admin: 04/22/18 23:42 Dose: Not Given PE: HEENT: PERRL, EOMI PULM: scattered rhonchi, no wheezes CV: RRR, no m/r/g appreciated ABD: soft, NT, ND Ext: w/w/p, 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
[2018-04-23] MEDS: MUPIROCIN 2% TOPICAL OINTMENT FOR DECOLONIZATION NS SCH ×2 (12:49→22:02)
[2018-04-23] MEDS: SODIUM CHLORIDE 1,000 ML IV SCH ×2 (15:00→20:20)
[2018-04-23] MEDS: AMOX TR/POT CLAV 500MG/125MG TABLETS (FP) PO SCH (20:20)
[2018-04-23] MEDS: CHLORHEXIDINE GLUCONATE 4% CLEANSER FOR DECOLONIZATION TP SCH (22:02)
--- NOTE | 2018-04-23 22:05 | EKG ---
Test Reason : Blood Pressure : / mmHG Vent. Rate : 110 BPM Atrial Rate : 110 BPM P-R Int : 132 ms QRS Dur : 104 ms QT Int : 346 ms P-R-T Axes : 048 068 018 degrees QTc Int : 468 ms SINUS TACHYCARDIA OTHERWISE NORMAL ECG NO PREVIOUS ECGS AVAILABLE Confirmed by BONG CARRILLO MD ([id number]) on 04/23/2018 10:05:22 PM Referred By: Confirmed By:BONG CARRILLO MD
[2018-04-24 06:02] LABS: BASO % 0.3 % (0-2.0); EOS % 1.4 % (0-4.5); HEMATOCRIT 36.2 % (35.4-49); HEMOGLOBIN 12.2 GM/dL (11.7-16.9); LYMPH % 38.5 % (8-40); MCH 29.5 pg (25.7-33.7); MCHC 33.7 g/dl (32.0-35.9); MEAN CELL VOLUME 87.5 fl (80-96); MEAN PLT VOLUME 8.7 fl (7.5-11.1); MONO % 6.2 % (3.8-10.2); NEUT % 53.6 % (42.8-82.8); PLATELET COUNT 151 K/MM3 (134-434); RBC 4.13 M/mm3 (4.00-5.60); RDW 13.5 % (11.9-15.9); WHITE BLOOD COUNT 9.3 K/mm3 (4.0-10.0)
[2018-04-24 06:37] LABS: ALBUMIN 3.1 g/dl (3.4-5.0); ALK PHOS 77 U/L (45-117); ANION GAP 6 MMOL/L (8-16); BILIRUBIN,TOTAL 0.7 mg/dL (0.2-1); BLOOD UREA NITROGEN 11 mg/dL (7-18); CALCIUM 8.2 mg/dL (8.5-10.1); CHLORIDE 111 mmol/L (98-107); CO2 26 mmol/L (21-32); GLUCOSE,RANDOM 83 mg/dL (74-106); MAGNESIUM 1.6 mg/dL (1.8-2.4); POTASSIUM 3.8 mmol/L (3.5-5.1); SGOT/AST 62 U/L (15-37); SGPT/ALT 189 U/L (13-61); SODIUM 143 mmol/L (136-145)
[2018-04-24] MEDS ORDERED: MAGNESIUM OXIDE 400 MG TABLET (FP) PO ONE (07:42)
[2018-04-24] MEDS: SODIUM CHLORIDE 1,000 ML IV SCH (08:06)
--- NOTE | 2018-04-24 08:31 | PN ---
Progress Note (short form) - Note Progress Note: PULM/CCM Pt seen and examined in ICU 24HR: -extubated, hemodynamically stable -floor vs d/c home today Vital Signs Temp 98.2 F 04/24/18 06:00 Pulse 62 04/24/18 08:00 Resp 22 H 04/24/18 08:00 BP 142/91 04/24/18 08:00 Pulse Ox 95 04/24/18 08:15 Intake & Output 04/23/18 04/23/18 04/24/18 11:59 23:59 11:59 Intake Total 2935 875 Output Total 1200 250 Balance 1735 625 Weight 70.035 kg 70.035 kg Intake: IV 1935 875 DIPRIVAN - 1,000,000 mcg 50 In 100 ml @ 5 MCG/KG/MIN 2.449 mls/hr IVPB TITR [facility] Rx#:[id number] Normal Saline - 1,000 ml 1875 875 @ 125 mls/hr IV ASDIR [facility] Rx#:[id number] Versed - 100 mg In Normal 10 Saline - 100 ml @ 1 MG/ HR 1 mls/hr IVPB TITR [facility] Rx#:[id number] IVPB 200 Oral 800 Output: Urine 1200 250 Au 900 Void 300 250 Other: Voiding Method Indwelling Catheter Urinal Weight Measurement Method Built in [facility] CBCD WBC 9.3 K/mm3 (4.0-10.0) 04/24/18 05:30 RBC 4.13 M/mm3 (4.00-5.60) 04/24/18 05:30 Hgb 12.2 GM/dL (11.7-16.9) 04/24/18 05:30 Hct 36.2 % (35.4-49) 04/24/18 05:30 MCV 87.5 fl (80-96) 04/24/18 05:30 MCHC 33.7 g/dl (32.0-35.9) 04/24/18 05:30 RDW 13.5 % (11.9-15.9) 04/24/18 05:30 Plt Count 151 K/MM3 (134-434) 04/24/18 05:30 MPV 8.7 fl (7.5-11.1) 04/24/18 05:30 CMP Sodium 143 mmol/L (136-145) 04/24/18 05:30 Potassium 3.8 mmol/L (3.5-5.1) 04/24/18 05:30 Chloride 111 mmol/L (98-107) H 04/24/18 05:30 Carbon Dioxide 26 mmol/L (21-32) 04/24/18 05:30 Anion Gap 6 MMOL/L (8-16) L 04/24/18 05:30 BUN 11 mg/dL (7-18) 04/24/18 05:30 Creatinine 1.0 mg/dL (0.55-1.3) 04/24/18 05:30 Creat Clearance w eGFR > 60 (>60) 04/24/18 05:30 Calcium 8.2 mg/dL (8.5-10.1) L 04/24/18 05:30 Total Bilirubin 0.7 mg/dL (0.2-1) 04/24/18 05:30 AST 62 U/L (15-37) H 04/24/18 05:30 ALT 189 U/L (13-61) H 04/24/18 05:30 Alkaline Phosphatase 77 U/L (45-117) 04/24/18 05:30 Total Protein 6.0 g/dl (6.4-8.2) L 04/24/18 05:30 Albumin 3.1 g/dl (3.4-5.0) L 04/24/18 05:30 Active Medications Amoxicillin/Clavulanate Potassium (Augmentin - 500mg Tablet) 1 tab PO TIDCM [facility] Last Admin: 04/23/18 20:20 Dose: 1 tab Chlorhexidine Gluconate (Hibiclens For Decolonization -) 1 applic TP HS [facility] Last Admin: 04/23/18 22:02 Dose: 1 applic Sodium Chloride (Normal Saline -) 1,000 mls @ 125 mls/hr IV ASDIR [facility] Last Admin: 04/24/18 08:06 Dose: 125 mls/hr Mupirocin (Bactroban Ointment (For Decolonization) -) 1 applic NS BID [facility] Stop: 04/27/18 21:59 Last Admin: 04/23/18 22:02 Dose: 1 applic PE: HEENT: PERRL, EOMI PULM: scattered rhonchi, no wheezes CV: RRR, no m/r/g appreciated ABD: soft, NT, ND Ext: w/w/p, 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
[2018-04-24] MEDS ORDERED: PT OWN MED DRAWER 7, Y5N ONE (08:35)
[2018-04-24] MEDS: AMOX TR/POT CLAV 500MG/125MG TABLETS (FP) PO SCH (08:39)
--- NOTE | 2018-04-24 09:55 | PN ---
Physical Exam: SUBJECTIVE: Patient seen and examined in the ICU. He has been monitored for 24 hours after being extubated yesterday. He has been tolerating room air, speaking in clear sentences and without shortness of breath. He denies shortness of breath, denies chest pain. Coughing up some white phlegm but otherwise no complaints. Wants to go back to the longterm today. He had a bed at a longterm in [place] before being admitted here. Will see his dental officer on Wednesday. Again does not want his family contacted. OBJECTIVE: Vital Signs Period Temp Pulse Resp BP Sys/Mcconnell Pulse Ox Last 24 Hr 98.2 F-101 F 52-94 14-22 122-144/72-91 95-100 GENERAL: The patient is awake, alert, and fully oriented, in no acute distress. tolerating room air. wants to go home. HEAD: Normal with no signs of trauma. EYES: PERRL, extraocular movements intact, sclera anicteric, conjunctiva clear. No ptosis. ENT: Ears normal, nares patent, oropharynx clear without exudates, moist mucous membranes. NECK: Trachea midline, full range of motion, supple. LUNGS: Breath sounds equal, mostly clear to auscultation. diminshed at the bases. has a productive wet cough. HEART: Regular rate and rhythm ABDOMEN: Soft, nontender, nondistended, tolerating regular diet. EXTREMITIES: no edema. right hand deformity with amputated digits. left hand deforming with finger clubbing and discolored nails NEUROLOGICAL: Normal speech, gait not observed. PSYCH: Normal mood, normal affect. SKIN: Warm, dry, normal turgor, no rashes or lesions noted Laboratory Results - last 24 hr 04/23/18 04/24/18 04/24/18 11:14 05:30 05:30 WBC 9.3 RBC 4.13 Hgb 12.2 Hct 36.2 MCV 87.5 MCH 29.5 MCHC 33.7 RDW 13.5 Plt Count 151 MPV 8.7 Absolute Neuts (auto) 5.0 Neutrophils % 53.6 D Lymphocytes % 38.5 D Monocytes % 6.2 Eosinophils % 1.4 D Basophils % 0.3 Nucleated RBC % 0 Sodium 143 Potassium 3.8 Chloride 111 H Carbon Dioxide 26 Anion Gap 6 L BUN 11 Creatinine 1.0 Creat Clearance w eGFR > 60 POC Glucometer 89 Random Glucose 83 Calcium 8.2 L Magnesium 1.6 L Total Bilirubin 0.7 AST 62 H ALT 189 H Alkaline Phosphatase 77 Total Protein 6.0 L Albumin 3.1 L Active Medications Generic Name Dose Route Start Last Admin Trade Name Jamshid PRN Reason Stop Dose Admin Amoxicillin/Clavulanate Potassium 1 tab 04/23/18 18:00 04/24/18 08:39 Augmentin - 500mg Tablet PO 1 tab TIDCM LIBERTY Administration Chlorhexidine Gluconate 1 applic 04/22/18 22:00 04/23/18 22:02 Hibiclens For Decolonization - TP 1 applic HS LIBERTY Administration Mupirocin 1 applic 04/22/18 22:00 04/23/18 22:02 Bactroban Ointment (For Decolonization) - NS 04/27/18 21:59 1 applic BID LIBERTY Administration ASSESSMENT/PLAN: Patient is a 33 year old male with no significant past medical history. He admits to recent drug use (K2 synthetic marijuana) and occasionally smokes marijuana. Denies IVDU. He was brought in the ED via EMS after he was found unresponsive and surrounded by vomit. Enroute to hospital, EMS gave 1.2 mg of narcan total with no response from patient. Patient's had an ID from corrections and was recently released from skilled nursing (which was the only way we could identify him). He was intubated on admission to protect his airway and was extubated on 04/23/18 at 10a.m. He admits to K2 drug use before he passed out. He has been tolerating room air and in no respiratory distress. He had a bedside swallow test and now is tolerating a regular diet. He wants to go home. We will discharge him home today with Augmentin 500mg for 7 more days. He is encouraged to call our clinic for a follow up appointment within 1 week. He says that [facility] is closer to him and may follow up there. Acute metabolic encephalopathy Acute toxic metabolic encephalopathy Hyperglycemia Lactic acidosis Aspiration pneumonia Elevated ast/alt Rule out ACS Neuro: Acute metabolic encephalopathy, resolved. He is awake, alert and oriented in no distress. Head CT negative. No signs of trauma. AMS secondary to illicit drug use. No signs of withdrawal. Cessation discussed with patient and he is unwilling to get any help for drug use at this time. Tells me he will abstain on his own. He has been to group meetings at the [employer] before and my consider attending another meeting. ID: Pneumonitis. No fevers, no shortness of breath. Has a wet productive cough without airway compromise. Will send home on Augmentin 500mg BID x 7 days. Rule out sepsis, negative blood cultures to date. had a fever of 101F yesterday , non since-afebrile x 24 hrs. no signs of infection. Renal: Acute kidney injury 1.8 on admission, resolved. Card: Rule out ACS. elevated troponins secondary to demand ischemia from drug use. EKG normal. GI: Elevated AST/ALT, likely from drug use. downtrending. ultrasound negative. Will need outpatient follow up. information provided in discharge instructions. Endocrine Hyperglycemia, resolved. not diabetic. hmga1c 5.6 Disposition: discharge home. patient wants to go the [facility]. SW to follow up. He has no money for the Augmentin. I called the pharmacy and they are unable to confirm his insurance at this time, therefore will need to pay out of pocket for Augmentin $21.00. Visit type - Emergency Visit Emergency Visit: Yes ED Registration Date: 04/22/18 Care time: The patient presented to the Emergency Department on the above date and was hospitalized for further evaluation of their emergent condition. - New Patient This patient is new to me today: No - Critical Care Critical Care patient: No - Discharge Referral Referred to [facility] Med P.C.: Yes
[2018-04-24 12:09] VITALS: TEMP 98.4
[2018-04-24 12:15] VITALS: BP 141/97; PULSE 66
--- NOTE | 2018-04-24 13:40 | DS ---
Physical Exam: SUBJECTIVE: Patient seen and examined the bedside. discussed with him abstinence from drugs , such as K2 which he admits to taking before he passed out. He does not want to seek help for drug use at this time, may consider attending a [facility] [employer] in the future. Tells me that he does not want his mother contacted or to know why he was hospitalized. Wants to go home today, does not want to stay until tomorrow. Feels well, eating well and breathing on his own without any difficulty. Follow up referrals given to him, but states that [facility] [place] is closer to his longterm and he will go there instead. OBJECTIVE: encouraged him to follow up and have repeat blood work. Vital Signs Period Temp Pulse Resp BP Sys/Mcconnell Pulse Ox Last 24 Hr 98.2 F-101 F 52-88 16-22 122-144/72-97 95-97 PHYSICAL EXAM GENERAL: The patient is awake, alert, and fully oriented, in no acute distress. tolerating room air. wants to go home. HEAD: Normal with no signs of trauma. EYES: PERRL, extraocular movements intact, sclera anicteric, conjunctiva clear. No ptosis. ENT: Ears normal, nares patent, oropharynx clear without exudates, moist mucous membranes. NECK: Trachea midline, full range of motion, supple. LUNGS: Breath sounds equal, mostly clear to auscultation. diminished at the bases. has a productive wet cough. HEART: Regular rate and rhythm ABDOMEN: Soft, nontender, nondistended, tolerating regular diet. EXTREMITIES: no edema. right hand deformity with amputated digits. left hand deforming with finger clubbing and discolored nails NEUROLOGICAL: Normal speech, gait not observed. PSYCH: Normal mood, normal affect. SKIN: Warm, dry, normal turgor, no rashes or lesions noted LABS Laboratory Results - last 24 hr 04/22/18 04/24/18 04/24/18 17:04 05:30 05:30 WBC 9.3 RBC 4.13 Hgb 12.2 Hct 36.2 MCV 87.5 MCH 29.5 MCHC 33.7 RDW 13.5 Plt Count 151 MPV 8.7 Absolute Neuts (auto) 5.0 Neutrophils % 53.6 D Lymphocytes % 38.5 D Monocytes % 6.2 Eosinophils % 1.4 D Basophils % 0.3 Nucleated RBC % 0 Puncture Site No Result Required. Adrián Test No Result Required. Oxygen Flow Rate No Result Required. Sodium 143 Potassium 3.8 Chloride 111 H Carbon Dioxide 26 Anion Gap 6 L BUN 11 Creatinine 1.0 Creat Clearance w eGFR > 60 Random Glucose 83 Calcium 8.2 L Magnesium 1.6 L Total Bilirubin 0.7 AST 62 H ALT 189 H Alkaline Phosphatase 77 Total Protein 6.0 L Albumin 3.[address]: negative for acute process Chest xray: congestive changes on left base. HOSPITAL COURSE: Patient presented to the ED via EMS after he was found unresponsive and slumped over at a park bench. Enroute to hospital, EMS gave 1.2 mg of narcan total with no response from patient. He was intubated on admission to protect his airway. Little information was known about his patient as he was unresponsive on admission and last visit here was in 2011. Numerous calls made to the family on file were unsuccessful. Initially he was treated with IV antibiotics for possible sepsis, was given Keppra as it was thought that he may have been post ictal on arrival. An NGT was placed for possible aspiration as he was vomiting on arrival. A diagnosis of drug overdose was also a possibility on admission. He was monitored in the ICU and extubated on 04/23/2018. After being extubated, patient informed me that he was recently out of senior care and did smoke K2 (synthetic marijuana) before passing out. He does not provided any other information but denies IV drug use. He has been tolerating room air and in no respiratory distress. He had a bedside swallow test and now is tolerating a regular diet. He denies any past medical history and his only allergy is to pollen. He wants to go home. We will discharge him home today with Augmentin 500mg for 7 more days. He is encouraged to call our clinic for a follow up appointment within 1 week. He says that [facility] is closer to him and may follow up there. Acute metabolic encephalopathy Acute toxic metabolic encephalopathy Hyperglycemia Lactic acidosis Aspiration pneumonia Elevated ast/alt Rule out ACS Neuro: Acute metabolic encephalopathy, resolved. He is awake, alert and oriented in no distress. Head CT negative. No signs of trauma. AMS secondary to illicit drug use. No signs of withdrawal. Cessation discussed with patient and he is unwilling to get any help for drug use at this time. Tells me he will abstain on his own. He has been to group meetings at the [employer] before and my consider attending another meeting. ID: Pneumonitis. No fevers, no shortness of breath. Has a wet productive cough without airway compromise. Will send home on Augmentin 500mg BID x 7 days. He currently has an inactive insurance and this medication has been provided to him free of charge from our pharmacy. Otherwise, the cost is $21.00 per [facility] pharmacist. Ruled out sepsis, negative blood cultures to date. had a fever of 101F yesterday , non since-afebrile x 24 hrs. no signs of infection. will discharge on Augmentin BID x 7 days. Renal: Acute kidney injury 1.8 on admission, resolved with IV hydration. Card: Rule out ACS. elevated troponins secondary to demand ischemia from drug use. EKG normal. GI: Elevated AST/ALT, likely from drug use. downtrending. ultrasound negative. Will need outpatient follow up. followup information provided in discharge instructions. Endocrine Hyperglycemia, resolved. not diabetic. hmga1c 5.6 Disposition: discharge home. patient wants to go the longterm a [place] and asking to leave today. Tells me that he will abstain from drugs and will attempt to get his life together by getting SSI and a job. Refusing referrals to drug rehab. Date of Admission:04/22/18 Date of Discharge: 04/24/18 Minutes to complete discharge: 60 Discharge Summary Reason For Visit: RESPIRATORY FAILURE, AMS Condition: Stable - Instructions Diet, Activity, Other Instructions: Mr. Teixeira: You were admitted to [facility] for respiratory failure and your were intubated to protect your airway. You were extubated on 04/23/2018. You have been doing well and are stable for discharge. Here are our discharge recommendations: Respiratory failure, resolved Your respiratory status is now stable and you are tolerating room air. We will be discharging you home with Augmentin (antibiotics) for pneumonitis ( inflammation of of lung tissue). You will need Augmentin 500mg for 7 more days (started on 04/24/2017 and you will complete this antibiotic on April 30 2018). This medication has been called into [facility] pharmacy on [facility]. New Medications Augmentin 500mg/125/mg - take twice per day at 8am and 8pm. for 7 days total. You complete this antibiotic on April 30 2018 Follow ups: Please return to our clinic at [address] [place] [address]. The information is enclosed. It is important that you follow up as we need to keep a close eye on your liver enzymes to assure that they return to normal levels. Return to the Ed if you experience any fever or chills. Please follow up at the [facility]. Mr. Teixeira: Please call me with any questions that you may have. [facility] [phone] Referrals: Emeka Tolentino MD [Staff Physician] - 1 Week (please make an appointment. ) Disposition: HOME - Home Medications Comprehensive Discharge Medication List: Ambulatory Orders Benztropine Mesylate [Cogentin -] 1 mg PO DAILY #14 tablet 12/10/17 Divalproex [Depakote -] 500 mg PO HS #14 tablet.ec 12/10/17 Fluphenazine Decanoate [Prolixin Decanoate (Long-Acting Injection) -] 25 mg IJ ONCE #2 ml 12/10/17 Amox-Tr/K Cl [Augmentin - 500Mg Tablet] 1 tab PO BID #14 tab 04/24/18 Amox-Tr/K Cl [Augmentin 500-125mg Tablet -] 1 tab PO BID #14 tablet 04/24/18 This patient is new to me today: No Emergency Visit: Yes ED Registration Date: 04/22/18 Care time: The patient presented to the Emergency Department on the above date and was hospitalized for further evaluation of their emergent condition. Critical Care patient: No - Discharge Referral Referred to [facility] Med P.C.: No
[2018-04-25 14:16] LABS: HEP.C VIRUS AB <0.1 s/co ratio (0.0-0.9)
== END 2018-04-24 14:51 | disposition home or self-care (01) | DRG 812 ==
LOC: JER 15:38 → JERBED 17:40 → JICU 22:16
PROVIDERS: ADMIT Internal Medicine; ATTEND Nurse Practitioner Family
PROC: 5A1935Z Respiratory Ventilation, Less than 24 Consecutive Hours (ICD-10-PCS; principal; 2018-04-22)
PROC: 0BH17EZ Insertion of Endotracheal Airway into Trachea, Via Natural or Artificial Opening (ICD-10-PCS; 2018-04-22)
DX: T40.7X1A Poisoning by cannabis (derivatives), accidental (unintentional), initial encounter (principal); J69.0 Pneumonitis due to inhalation of food and vomit; G92 Toxic encephalopathy; N17.9 Acute kidney failure, unspecified; E87.2 Acidosis; I24.8 Other forms of acute ischemic heart disease; R74.0 Nonspecific elevation of levels of transaminase and lactic acid dehydrogenase [LDH]; E86.0 Dehydration; R73.9 Hyperglycemia, unspecified; F12.10 Cannabis abuse, uncomplicated; Y92.89 Other specified places as the place of occurrence of the external cause
CPT/HCPCS: 36415; 36600; 70450-TC; 71045-TC-FY; 74176-TC; 76705-TC; 80048; 80053; 80074; 80307; 81003; 81015; 82140; 82272; 82375; 82803; 82962; 83036; 83050; 83605; 83735; 84484; 85025; 85027; 85610; 86705; 87040; 87086; 87116; 87206; 87389; 87899; 93005; 93010; 94002; 99285-25; J7030